=== PATIENT | male | born 1980 | race Caucasian/White ===

== ENCOUNTER 2019-10-10 12:00 | Emergency (ER) | payer MEDICAID ==
[~2019-10-10] VITALS: Ht 185.4 cm; Wt 80.0 kg
[2019-10-10 12:05] VITALS: BP 163/94
== END 2019-10-10 12:26 | disposition home or self-care (01) ==
LOC: ER 12:01
DX: Z00.00 Encounter for general adult medical examination without abnormal findings (principal); F12.90 Cannabis use, unspecified, uncomplicated; Z72.89 Other problems related to lifestyle; Z88.1 Allergy status to other antibiotic agents
CPT/HCPCS: 99281